=== PATIENT | male | born 2000 | race African-American/Black ===

== ENCOUNTER 2025-02-13 11:54 | Emergency (ER) | payer SELFPAY | END 2025-02-13 13:55 | disposition home or self-care (01) | LOC: MW.ED 11:54 | DX: S63.501A Unspecified sprain of right wrist, initial encounter (principal); Z79.899 Other long term (current) drug therapy; Z75.3 Unavailability and inaccessibility of health-care facilities; V86.55XA Driver of 3- or 4- wheeled all-terrain vehicle (ATV) injured in nontraffic accident, initial encounter; Y93.89 Activity, other specified | CPT/HCPCS: 73110-26-RT; 73110-RT; 99282; 99283 ==

== ENCOUNTER 2025-05-27 02:24 | Emergency (ER) | payer SELFPAY ==
[2025-05-27] MEDS: Acetaminophen/HYDROcodone 325-5 MG Tab PO ONE (02:56)
== END 2025-05-27 03:00 | disposition home or self-care (01) ==
LOC: MW.ED 02:24
DX: K02.9 Dental caries, unspecified (principal)
CPT/HCPCS: 99282; A9270; 99283